=== PATIENT | female | born 1935 | race Caucasian/White ===

== ENCOUNTER → 2019-04-07 | Outpatient (CLI) | payer MEDICARE, OTHER ==
[~2019-04-07] MED LIST: ARMOUR THYROID90 MG PO; CIPROFLOXACIN500 MG PO; HYDRALAZINE HCL50 MG PO; LEVOTHYROXINE25 MCG PO; LEVOTHYROXINE50 MCG PO; LOSARTAN POTASS50 MG PO; LUMIGAN2.5 M1 OU; MACRODANTIN100 MG PO; TIMOPTIC 0.5%1 EACH OU; VITAMIN B12 PO; VITAMIN C PO; VITAMIN D PO
[2019-04-07 09:56] LABS: BASOPHILS # (AUTO) 0.1 (0.0-0.1); EOSINOPHILS # (AUTO) 0.1 (0.0-0.4); EOSINOPHILS % 1.9 % (0.0-6.0); HEMATOCRIT 40.8 % (34.2-44.1); HEMOGLOBIN 13.2 g/dL (12.0-16.0); LYMPHOCYTES # (AUTO) 1.5 (1.0-3.2); LYMPHOCYTES % 31.4 % (18.0-39.1); MEAN CORPUSCULAR HGB CONC 32.4 g/dL (31-35); MEAN CORPUSCULAR VOLUME 95.8 fL (81-99); MONOCYTES # (AUTO) 0.4 (0.2-0.8); MONOCYTES % 8.9 % (4.4-11.3); NEUTROPHILS # (AUTO) 2.7 (2.1-6.9); NEUTROPHILS % 56.2 % (38.7-80.0); PLATELET COUNT 221 x10e3/uL (140-360); RED BLOOD COUNT 4.26 x10e6/uL (3.6-5.1); RED CELL DISTRIBUTION WIDTH 13.1 % (11.7-14.4)
[2019-04-07 10:16] LABS: ALANINE AMINOTRANSFERASE 16 IU/L (0-55); ALBUMIN 3.9 g/dL (3.5-5.0); ALBUMIN/GLOBULIN RATIO 1.5 (0.8-2.0); ALKALINE PHOSPHATASE 106 IU/L (40-150); ANION GAP 12.5 mmol/L (8-16); BLOOD UREA NITROGEN 16 mg/dL (7-26); BUN/CREATININE RATIO 21 (6-25); CALCIUM 9.7 mg/dL (8.4-10.2); CARBON DIOXIDE 26 mmol/L (22-29); CHLORIDE 102 mmol/L (98-107); CREATININE, SERUM 0.77 mg/dL (0.57-1.11); EST GLOMERULAR FILTRATION RATE > 60 ML/MIN (60-); GLUCOSE 107 mg/dL (74-118); POTASSIUM 3.5 mmol/L (3.5-5.1); SODIUM 137 mmol/L (136-145)
[2019-04-07 10:39] LABS: FREE T4 (FREE THYROXINE) 0.95 ng/dL (0.9-1.8)
== END ==
LOC: LAB 09:31
PROVIDERS: ATTEND Psychiatry & Neurology Clinical Neurophysiology
DX: G30.1 Alzheimer's disease with late onset (principal)
CPT/HCPCS: 36415; 80053; 82140; 82607; 84439; 84443; 85025; 86592

== ENCOUNTER → 2019-04-19 | Outpatient (CLI) | payer MEDICARE, OTHER ==
--- NOTE | 2019-04-19 13:05 | Diagnostic Imaging Report ---
History: Memory loss Comparison studies: CT head 02/18/2017 Technique: Sagittal T2; axial DWI, FLAIR, MPGR, T1, Coronal FLAIR. Intravenous contrast: None Findings: Scalp: Normal in signal . No masses . Bone marrow: Normal in signal intensity. Extra-axial: No masses, no fluid collections. Brain sulci: Mildly prominent. Ventricles: Mildly prominent. Asymmetric prominence of the left temporal horn, with possible hippocampal volume loss, stable from previous examination . No hydrocephalus . Parenchyma: Scattered small T-2/flair hyperintensities of the periventricular and deep white matter No masses, hemorrhage, acute or chronic vascular insults. Suprasellar region: No abnormalities. Craniocervical junction: Anterior right extra-axial mass at the foramen magnum resulting in mass effect over the medulla oblongata and upper cervical cord with associated T2 hyperintensity. Vessels: Normal flow-voids in the arteries and sinuses. IMPRESSION: 1. No acute abnormalities. 2. Mild chronic microvascular ischemic changes of the white matter. Mild diffuse volume loss. Asymmetric prominence of the left temporal horn, stable from previous CT. 3. 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 on 04/19/2019 2:50 PM
== END ==
LOC: MRI 10:26
PROVIDERS: ATTEND Psychiatry & Neurology Clinical Neurophysiology
DX: G30.1 Alzheimer's disease with late onset (principal)
CPT/HCPCS: 70551

== ENCOUNTER → 2019-05-18 | Outpatient (CLI) | payer MEDICARE, OTHER ==
--- NOTE | 2019-05-19 14:23 | NUR ---
1429 Bedside report received from Jose Manuel DESAI. Alert oriented and appropriate, PERRLA, respirations even and unlabored to room air. Pulses x4 extremities equal and strong. Pedal pulses PT/DP 4 palpable and marked. Cap fill brisk < 3 sec. Skin warm and dry integrity appears XXX. IV 20g presents healthy w/o s/s of infiltration or complaint. Abdomen soft and supple. pt offered toileting, denies need to urinate or defecate. No personal affects with patient. Griselhannahleena . Pt and family verbalizes understanding of POC. Currently w/o complaint of pain or need. Left perclose site w/o hematoma or oozing Aware dc at 4pm and f/o wk. rivka Addendum: 05/19/19 at 1511 by Yael Frankel RN [id number] please disregard previous note in error rivka
== END ==
LOC: CARD 08:18
PROVIDERS: ATTEND Nurse Practitioner Acute Care
DX: L03.116 Cellulitis of left lower limb (principal); L03.115 Cellulitis of right lower limb; M79.672 Pain in left foot
CPT/HCPCS: 93925; 93970